=== PATIENT | female | born 1990 | race American Indian/Alaskan Native ===

== ENCOUNTER 2017-07-19 13:49 | Emergency (ER) | payer SELFPAY ==
--- NOTE | 2017-07-19 22:48 | XRay Report ---
FINAL REPORT EXAM: XR CHEST ROUTINE 2V HISTORY: cough and chest discomfort TECHNIQUE: Two view chest PA and lateral PRIORS: None. FINDINGS: Cardiac and mediastinal contours are unremarkable. No focal pulmonary infiltrate is identified. No pleural fluid collection seen. Pulmonary vasculature is unremarkable. IMPRESSION: Negative two-view chest
[2017-07-19 23:01] VITALS: BP 127/89
--- NOTE | 2017-07-21 18:38 | Emergency Department Report ---
Entered by LAURA DONALD, acting as scribe for DAY DOZIER PAC. - General Chief Complaint: Upper Respiratory Infection Stated Complaint: COLD Time Seen by Provider: 07/19/17 19:12 Source: patient Mode of arrival: Ambulatory Limitations: No Limitations - History of Present Illness Initial Comments: 27 y/o female with a PMHx of eczema and genital warts presents to the ED c/o an upper respiratory infection that began 1 week ago. Aggravated with deep breaths and alleviated with nothing. Associated symptoms includes a productive cough with greenish-yellow sputum, congestion, rhinorrhea, scratchy sore throat, headache, and chest pain with cough only, but she denies ear pain, wheezing, abdominal pain, nausea, vomiting, fever, chills, chest pain, SOB, and dizziness. Positive sick contacts with someone with similar symptoms. PMHx of bronchitis. Took Benadryl with no relief. LN June 2017. NKDA. NELSON Complaint: cough Onset/Timin -: week(s) Severity: mild Severity scale (0 -10): 0 Consistency: constant Improves With: nothing Worsens With: deep breaths Associated Symptoms: denies other symptoms, headache, rhinorrhea, nasal congestion, sore throat, cough (with greenish-yellow sputum), chest pain (with cough only). denies: fever, chills, myalgias, diaphoresis, stiff neck, shortness of breath, abdominal pain, nausea, vomiting, diarrhea, dysuria, rash, confusion, right sweats, weight loss, epistaxis, hoarseness, ear pain Treatments Prior to Arrival: "cold medicine" (Benadryl) - Related Data Previous Rx's Medication Instructions Recorded Last Taken Type ALBUTEROL Inhaler [ProAir HFA 2 puff IH QID PRN #1 inhalation 11/23/14 Unknown Rx Inhaler] Benzonatate [Tessalon Perles] 100 mg PO Q8HR #30 capsule 11/23/14 Unknown Rx Mupirocin [Bactroban 2% OINT] 1 applic TP TID #1 tube 11/23/14 Unknown Rx Prednisone [Prednisone 5 mg (6-Day 5 mg PO .TAPER #1 tab.ds.pk 11/23/14 Unknown Rx Pack, 21 Tabs)] Ibuprofen [Motrin] 800 mg PO TID PRN #30 tablet 12/13/14 Unknown Rx Sulfamethoxazole/Trimethoprim 2 each PO BID #40 tablet 12/13/14 Unknown Rx [Bactrim Ds] Ciprofloxacin HCl [Cipro] 250 mg PO BID #14 tablet 01/01/15 Unknown Rx Loratadine [Claritin] 10 mg PO DAILY #30 tablet 01/01/15 Unknown Rx Sodium Chloride [Story] 1 spray NS QDAY #1 bottle 01/01/15 Unknown Rx metroNIDAZOLE [Flagyl] 500 mg PO BID #14 tablet 01/01/15 Unknown Rx Albuterol Sulfate [Proair 90 mcg IH PRN PRN #1 bottle 07/19/17 Unknown Rx Respiclick] Azithromycin [Zithromax Z-IRLANDA] 250 mg PO DAILY #6 tablet 07/19/17 Unknown Rx Benzonatate [Tessalon Perles] 100 mg PO Q8HR #15 capsule 07/19/17 Unknown Rx predniSONE [Deltasone] 20 mg PO QDAY #5 tab 07/19/17 Unknown Rx Allergies Allergy/AdvReac Type Severity Reaction Status Date / Time No Known Allergies Allergy Verified 01/01/15 15:52 ED Review of Systems Comment: All other systems reviewed and negative Constitutional: denies: chills, fever Eyes: denies: eye pain, eye discharge, vision change ENT: throat pain, congestion, other (rhinorrhea). denies: ear pain, dental pain , hearing loss, epistaxis Respiratory: cough (with greenish-yellow sputum). denies: orthopnea, shortness of breath, SOB with exertion, SOB at rest, stridor, wheezing Cardiovascular: chest pain (with cough only). denies: palpitations, dyspnea on exertion, orthopnea, edema, syncope, paroxysmal nocturnal dyspnea Endocrine: no symptoms reported Gastrointestinal: denies: abdominal pain, nausea, vomiting, diarrhea Genitourinary: denies: urgency, dysuria, discharge Musculoskeletal: denies: back pain, joint swelling, arthralgia Skin: denies: rash, lesions Neurological: headache. denies: weakness, paresthesias Psychiatric: denies: anxiety, depression Hematological/Lymphatic: denies: easy bleeding, easy bruising ED Past Medical Hx - Past Medical History Previous Medical History?: Yes Additional medical history: ECZEMA. GENITAL WARTS - Surgical History Past Surgical History?: Yes Additional Surgical History: - Family History Family history: no significant - Social History Smoking Status: Never Smoker Substance Use Type: Marijuana - Medications Home Medications: Home Medications Medication Instructions Recorded Confirmed Last Taken Type ALBUTEROL Inhaler [ProAir HFA 2 puff IH QID PRN #1 inhalation 11/23/14 Unknown Rx Inhaler] Benzonatate [Tessalon Perles] 100 mg PO Q8HR #30 capsule 11/23/14 Unknown Rx Mupirocin [Bactroban 2% OINT] 1 applic TP TID #1 tube 11/23/14 Unknown Rx Prednisone [Prednisone 5 mg (6-Day 5 mg PO .TAPER #1 tab.ds.pk 11/23/14 Unknown Rx Pack, 21 Tabs)] Ibuprofen [Motrin] 800 mg PO TID PRN #30 tablet 12/13/14 Unknown Rx Sulfamethoxazole/Trimethoprim 2 each PO BID #40 tablet 12/13/14 Unknown Rx [Bactrim Ds] Ciprofloxacin HCl [Cipro] 250 mg PO BID #14 tablet 01/01/15 Unknown Rx Loratadine [Claritin] 10 mg PO DAILY #30 tablet 01/01/15 Unknown Rx Sodium Chloride [Story] 1 spray NS QDAY #1 bottle 01/01/15 Unknown Rx metroNIDAZOLE [Flagyl] 500 mg PO BID #14 tablet 01/01/15 Unknown Rx Albuterol Sulfate [Proair 90 mcg IH PRN PRN #1 bottle 07/19/17 Unknown Rx Respiclick] Azithromycin [Zithromax Z-IRLANDA] 250 mg PO DAILY #6 tablet 07/19/17 Unknown Rx Benzonatate [Tessalon Perles] 100 mg PO Q8HR #15 capsule 07/19/17 Unknown Rx predniSONE [Deltasone] 20 mg PO QDAY #5 tab 07/19/17 Unknown Rx ED Physical Exam - General Limitations: No Limitations General appearance: alert, in no apparent distress - Head Head exam: Present: atraumatic, normocephalic, other (mild maxillary tenderness) - Eye Eye exam: Present: normal appearance, PERRL, EOMI Pupils: Present: normal accommodation - ENT ENT exam: Present: normal exam (scant clear nasal discharge noted), mucous membranes moist, normal external ear exam - Neck Neck exam: Present: normal inspection, full ROM. Absent: tenderness, meningismus, lymphadenopathy, thyromegaly - Respiratory Respiratory exam: Present: normal lung sounds bilaterally (intermittent cough noted on examination). Absent: respiratory distress, wheezes, rales, rhonchi, stridor, chest wall tenderness, accessory muscle use, decreased breath sounds - Cardiovascular Cardiovascular Exam: Present: regular rate, normal rhythm, normal heart sounds. Absent: systolic murmur, diastolic murmur - GI/Abdominal GI/Abdominal exam: Present: soft, normal bowel sounds. Absent: distended - Extremities Exam Extremities exam: Present: normal inspection, full ROM, normal capillary refill - Back Exam Back exam: Present: normal inspection, full ROM - Neurological Exam Neurological exam: Present: alert, oriented X3 - Psychiatric Psychiatric exam: Present: normal affect, normal mood - Skin Skin exam: Present: warm, dry, intact. Absent: rash ED Course Vital Signs 07/19/17 07/19/17 07/19/17 15:37 20:12 23:00 Temperature 98.8 F 98 F Pulse Rate 75 64 88 Respiratory 20 16 Rate Blood Pressure 101/65 Blood Pressure 124/91 127/89 [Left] O2 Sat by Pulse 100 100 Oximetry ED Medical Decision Making - Medical Decision Making 27 y/o F presented with cough for over 1 week that had become productive with mild chest tightness. Chest XR and EKG were conducted at the ED and were both negative for any acute changes. EKG was normal sinus rhythm with sinus arrhythmia. Pt denies testing at this time. Pt was diagnosed with bronchitis and discharged on azithromycin [place], tessalon perles, prednisone, and albuterol inhaler. Follow-up with PCP. ED Disposition Clinical Impression: Bronchitis, Cough Disposition: DC-01 TO HOME OR SELFCARE Is pt being admited?: No Does the pt Need Aspirin: No Condition: Stable Instructions: Acute Bronchitis (ED), Cold Symptoms (ED) Additional Instructions: Please take medications as prescribed to you today. Please be advised that cough suppressant may make you drowsy so take at night. Please follow-up with PCP within 3- 5 days. Please return to the ED with any acute worsening symptoms such as : chest pain, SOB, fever, or chills. Prescriptions: Albuterol Sulfate [Proair Respiclick] 90 mcg IH PRN PRN #1 bottle PRN Reason: cough Azithromycin [Zithromax Z-IRLANDA] 250 mg PO DAILY #6 tablet Benzonatate [Tessalon Perles] 100 mg PO Q8HR #15 capsule predniSONE [Deltasone] 20 mg PO QDAY #5 tab Referrals: [facility] [Outside] - 3-5 Days [facility] [Outside] - 3-5 Days PRIMARY CARE,MD [Primary Care Provider] - 3-5 Days Forms: Accompanied Note, Work/School Release Form(ED) This documentation as recorded by the SHABANA gillespie JASMINE,accurately reflects the service I personally performed and the decisions made by ,DAY DOZIER, PAC.
== END 2017-07-19 23:08 | disposition home or self-care (01) ==
LOC: ED 13:49
DX: J40 Bronchitis, not specified as acute or chronic (principal); F12.10 Cannabis abuse, uncomplicated
CPT/HCPCS: 71020; 93005; 93010; 99283